=== PATIENT | female | born 1950 | race Caucasian/White ===

== ENCOUNTER → 2019-05-05 | Outpatient (CLI) | payer OTHER | END | disposition home or self-care (01) | LOC: SHCH 13:14 | PROVIDERS: ATTEND Internal Medicine Cardiovascular Disease | DX: R07.9 Chest pain, unspecified (principal) | CPT/HCPCS: 93306 ==

== ENCOUNTER → 2021-06-09 | Outpatient (CLI) | payer OTHER | END | disposition home or self-care (01) | LOC: SHCH 11:31 | PROVIDERS: ATTEND Internal Medicine Cardiovascular Disease | DX: I70.293 Other atherosclerosis of native arteries of extremities, bilateral legs (principal) | CPT/HCPCS: 93925 ==

== ENCOUNTER → 2021-06-21 | Outpatient (CLI) | payer OTHER ==
[~2021-06-21] VITALS: Ht 162.6 cm; Wt 56.2 kg
[~2021-06-21] MED LIST: REGADENOSON 0.4 MG/5 ML PF SYG IVP SCH
== END ==
LOC: SHCH 06-20 08:27
PROVIDERS: ATTEND Internal Medicine Cardiovascular Disease
DX: R94.31 Abnormal electrocardiogram [ECG] [EKG] (principal)
CPT/HCPCS: 78452; 93017; 96374; A9500 ×2; J2785

== ENCOUNTER 2021-08-16 11:25 | Observation (INO) | payer OTHER, MEDICARE ==
[~2021-08-16] VITALS: Ht 162.6 cm; Wt 55.8 kg
[2021-08-16] VITALS (19 sets, daily range): BP systolic 110–147; BP diastolic 50–77
[2021-08-16] MEDS ORDERED: LACTATED RINGERS 1000ML 1,000 ML IV ONE (11:30)
[2021-08-16] MEDS ORDERED: ONDANSETRON 4MG INJ IVP ONE (11:30)
[2021-08-16 11:44] LABS: BASOPHILS % (AUTO) 0.6 % (0.0-5.0); EOSINOPHILS % (AUTO) 0.9 % (0.0-8.0); HEMATOCRIT 47.2 % (36-48); LYMPHOCYTES % (AUTO) 39.6 % (21.0-51.0); MEAN CORPUSCULAR HEMOGLOBIN 34.3 pg (27.0-33.0); MEAN CORPUSCULAR HGB CONC 33.9 g/dL (32.0-36.0); MEAN CORPUSCULAR VOLUME 101.1 fL (79-99); MONOCYTES % (AUTO) 6.1 % (3.0-13.0); NEUTROPHILS % (AUTO) 52.2 % (40.0-77.0); PLATELET COUNT (AUTO) 192 K/uL (130-400); RED BLOOD CELL COUNT(AUTO) 4.67 MIL/uL (4.00-5.50); RED CELL DISTRIBUTION WIDTH 12.1 % (11.0-15.5); WHITE BLOOD COUNT (AUTO) 9.7 K/uL (4.8-10.8)
[2021-08-16 11:56] LABS: APPEARANCE,URINE CLEAR (CLEAR); BILIRUBIN,URINE NEGATIVE (NEGATIVE); COLOR,URINE YELLOW (YELLOW); GLUCOSE, URINE (UA) NEGATIVE (NEGATIVE); KETONES,URINE NEGATIVE (NEGATIVE); LEUKOCYTE ESTERASE ,URINE NEGATIVE (NEGATIVE); NITRATE,URINE NEGATIVE (NEGATIVE); OCCULT BLOOD,URINE TRACE-LYSED (NEGATIVE); PROTEIN,URINE NEGATIVE (NEGATIVE); UROBILINOGEN,URINE 0.2 mg/dL (0.2-1.0)
[2021-08-16 12:03] LABS: CREATININE 0.8 mg/dL (0.5-1.5); POTASSIUM 3.7 mmol/L (3.5-5.1)
[2021-08-16 12:07] LABS: ALBUMIN 3.8 g/dL (3.5-5.0); TOTAL PROTEIN, SERUM 7.9 g/dL (6.0-8.3)
[2021-08-16 12:25] LABS: BACTERIA,URINE Rare /HPF (None Seen); RBC,URINE 0-1 /HPF (0-1); SQUAMOUS EPITHELIAL CELL,UR Few /HPF (0-2); WBC,URINE 0-1 /HPF (0-1)
[2021-08-16] MEDS ORDERED: ZOSYN 3.375GM +NS 50ML IV STA (15:44)
[2021-08-16] MEDS ORDERED: ROCURONIUM 10MG/1ML SYR 10 MG/ML ML ONE (18:46)
[2021-08-16] MEDS ORDERED: NEOSTIGMINE 5MG/5ML SYR IV ONE (18:46)
[2021-08-16] MEDS ORDERED: ONDANSETRON 4MG INJ ONE (18:46)
[2021-08-16] MEDS ORDERED: LIDOCAINE PF 100MG/5ML (2%) SYRINGE 5ML ONE (18:46)
[2021-08-16] MEDS ORDERED: SUCCINYLCHOLINE 200MG/10ML SYR ONE (18:46)
[2021-08-16] MEDS ORDERED: PROPOFOL 10 MG/ML 20ML VIAL IV ONE (18:46)
[2021-08-16] MEDS ORDERED: GLYCOPYRROLATE 1 MG/5 ML SYRINGE ONE (18:46)
[2021-08-16] MEDS ORDERED: MIDAZOLAM HCL 1 MG/ML 2ML VIAL ONE (18:46)
[2021-08-16] MEDS ORDERED: DEXAMETHASONE SOD PHOSPHATE 10MG/ML 1ML VIAL ONE (18:46)
[2021-08-16] MEDS ORDERED: FENTANYL CITRATE PF 50 MCG/1 ML 2ML VIAL ONE (18:48)
[2021-08-16] MEDS ORDERED: BUPIVACAINE/PF 0.25% 30ML VIAL IJ ONE (19:19)
[2021-08-16] MEDS ORDERED: ONDANSETRON 4MG INJ IV PRN (20:00)
[2021-08-16] MEDS ORDERED: MORPHINE 2 MG SYG IV PRN (20:00)
[2021-08-16] MEDS ORDERED: ACETAMINOPHEN 325 MG TAB PO PRN ×2 (20:00)
[2021-08-16] MEDS ORDERED: MORPHINE 4 MG SYG IV PRN (20:00)
[2021-08-16] MEDS ORDERED: SUGAMMADEX SODIUM 200 MG/2 ML VIAL IV ONE (20:16)
[2021-08-16] MEDS: 0.9%NACL 1000ML 1,000 ML IV SCH (20:22)
[2021-08-16] MEDS ORDERED: IPRATROPIUM/ALBUTEROL SULFATE 3 ML SOLUTION IH ONE (21:00)
[2021-08-16] MEDS: ZOSYN 3.375GM+NS 50ML 50 ML IV SCH (22:44)
[2021-08-16] MEDS: FAMOTIDINE 20MG VIAL IV SCH (22:44)
[2021-08-17] VITALS (7 sets, daily range): BP systolic 108–131; BP diastolic 58–72
[2021-08-17] MEDS: ZOSYN 3.375GM+NS 50ML 50 ML IV SCH (05:08)
[2021-08-17] MEDS: 0.9%NACL 1000ML 1,000 ML IV SCH (05:09)
[2021-08-17 05:20] LABS: BASOPHILS % (AUTO) 0.2 % (0.0-5.0); HEMATOCRIT 40.4 % (36-48); LYMPHOCYTES % (AUTO) 14.2 % (21.0-51.0); MEAN CORPUSCULAR HEMOGLOBIN 34.2 pg (27.0-33.0); MEAN CORPUSCULAR HGB CONC 33.7 g/dL (32.0-36.0); MEAN CORPUSCULAR VOLUME 101.5 fL (79-99); MONOCYTES % (AUTO) 1.6 % (3.0-13.0); NEUTROPHILS % (AUTO) 83.4 % (40.0-77.0); PLATELET COUNT (AUTO) 155 K/uL (130-400); RED BLOOD CELL COUNT(AUTO) 3.98 MIL/uL (4.00-5.50); RED CELL DISTRIBUTION WIDTH 11.9 % (11.0-15.5); WHITE BLOOD COUNT (AUTO) 8.3 K/uL (4.8-10.8)
[2021-08-17 05:30] LABS: CREATININE 0.8 mg/dL (0.5-1.5)
[2021-08-17] MEDS ORDERED: 0.9% NACL 250ML 250 ML IV SCH (06:00)
[2021-08-17] MEDS: FAMOTIDINE 20MG VIAL IV SCH (09:04)
== END 2021-08-17 10:10 | disposition home or self-care (01) ==
LOC: EDH 11:25 → EDHIP 19:31 → INTOOBSV 19:31 → 4BH 21:39 → 3CH 22:00
PROVIDERS: ADMIT Internal Medicine; ATTEND Internal Medicine
DX: K35.80 Unspecified acute appendicitis (principal); Z20.822 Contact with and (suspected) exposure to COVID-19; J44.9 Chronic obstructive pulmonary disease, unspecified; I10 Essential (primary) hypertension; Z79.899 Other long term (current) drug therapy
CPT/HCPCS: 36415 ×2; 44970; 74176; 80048; 80053; 81001; 82150; 83690; 84484; 85025 ×2; 87635; 93005; 94640; 96365; 96366 ×3; 96375; 96376; 99285; A4344; A4649 ×3; A4930; A6206; A6207; C1769 ×3; C9803; G0378 ×16; J0330; J1100; J2001; J2250; J2405 ×2; J2543 ×3; J2704; J2710; J3010; J3490 ×4; J7030; J7120